=== PATIENT | female | born 1995 | race Caucasian/White ===

== ENCOUNTER 2024-02-11 17:08 | Emergency (ER) | payer OTHER ==
[~2024-02-11] VITALS: Ht 152.4 cm; Wt 87.1 kg
[2024-02-11 17:38] VITALS: BP 132/101; PULSE 75; RESP 18; TEMP 98.6; O2SAT 99
[2024-02-11 18:24] LABS: APPEARANCE,URINE SLIGHTLY HAZY (CLEAR); BILIRUBIN,URINE NEGATIVE (NEGATIVE); BLOOD, URINE NEGATIVE (NEGATIVE); COLOR,URINE YELLOW (YELLOW); LEUKOCYTE ESTERASE ,URINE NEGATIVE (NEGATIVE); NITRITE, URINE NEGATIVE (NEGATIVE); PH,URINE 6.5 (5.0-9.0); PROTEIN,URINE 3+ (NEGATIVE); UGLUCOSE NEGATIVE (NEGATIVE); UROBILINOGEN,URINE 0.2 EU/dL (0.2 - 1)
[2024-02-11 18:25] LABS: RBC,URINE 0-5 /HPF (0-5)
[2024-02-11 18:26] LABS: BACTERIA,URINE 2+ /HPF (None Seen); MUCUS,URINE 1+ /LPF (None Seen); SQUAMOUS EPITHELIAL CELL,UR 4-10 (MOD) /LPF (0-3 (FEW))
[2024-02-11] MEDS ORDERED: CIPR500T4 PO (19:56)
[2024-02-11 20:15] VITALS: BP 119/82; PULSE 79; RESP 16; TEMP 98; O2SAT 97
== END 2024-02-11 20:15 | disposition home or self-care (01) ==
LOC: MED 17:08
DX: N39.0 Urinary tract infection, site not specified (principal)
CPT/HCPCS: 76830; 81001; 81025; 87086; 99284; Q0092